=== PATIENT | female | born 1985 | race Caucasian/White ===

== ENCOUNTER 2017-12-25 12:35 | Outpatient (CLI) | payer OTHER ==
[~2017-12-25] VITALS: Ht 167.6 cm; Wt 96.2 kg
[2017-12-25] VITALS (7 sets, daily range): BP systolic 132–143; BP diastolic 77–85
[~2017-12-25 12:35] MED LIST: BREAST PUMP MC; CHILD ASPIRIN81 M1 PO; ENDOCET 5-3251 EACH PO; FOLGARD1 TABLET PO; IBUPROFEN800 MG PO; MAGNESIUM30 MG PO; MOTRIN800 MG PO; PERCOCET 5/31 TABLET PO; PRENATAL VITAM1 EAC2 PO
[2017-12-25 13:16] LABS: BASOPHIL (%) 0.2 % (0-1); EOSINOPHIL (%) 1.2 % (0-5); EOSINOPHIL COUNT 0.1 K/uL (0-0.3); HEMATOCRIT 35.5 % (36.0-46.0); HEMOGLOBIN 11.9 G/DL (11.9-15.5); IMMATURE GRANULOCYTE (%) 0.4 % (0.0-0.7); LYMPHOCYTE (%) 20.6 % (15-42); MCH 27.2 PG (29.0-34.0); MCHC 33.5 G/DL (30.0-36.0); MCV 81.1 FL (83-99); MONOCYTE (%) 7.3 % (3-12); MONOCYTE COUNT 0.7 K/uL (0-0.8); NEUTROPHIL (%) 70.3 % (45-76); NEUTROPHIL COUNT 6.7 K/uL (1.8-6.4); PLATELET COUNT 174 K/uL (156-360); RBC DIS.WIDTH-CV 13.1 % (11.8-14.6); RBC DIS.WIDTH-SD 38.1 % (39-53); RED BLOOD COUNT 4.38 M/uL (3.80-5.20); WHITE BLOOD COUNT 9.5 K/uL (4.1-10.2)
[2017-12-25 13:24] LABS: ALBUMIN 3.3 g/dL (3.2-4.8); CHLORIDE 109 mEq/L (99-109); POTASSIUM 4.2 mEq/L (3.7-5.4); SODIUM 138 mEq/L (136-147)
[2017-12-25 13:26] LABS: GLUCOSE 77 mg/dL (70-99)
[2017-12-25 13:27] LABS: TOTAL PROTEIN 5.9 g/dL (6.4-8.3)
[2017-12-25 13:28] LABS: TOTAL BILIRUBIN 0.5 mg/dL (0.0-1.0)
[2017-12-25 13:30] LABS: ALKALINE PHOSPHATASE 121 IU/L (3-129); CREATININE 0.7 mg/dL (0.6-1.3); GFR ESTIMATE (CALCULATED) > 59 mL/min/
[2017-12-25 13:31] LABS: UREA NITROGEN (BUN) 12 mg/dL (9-23)
[2017-12-25 13:32] LABS: AST (GOT) 17 IU/L (2-34)
[2017-12-25 13:33] LABS: ALT (GPT) 17 IU/L (3-49)
[2017-12-25 13:48] LABS: UR CREATININE CONCENTRATION 163.4 MG/DL
[2017-12-26] MEDS ORDERED: IBUPROFEN800 MG PO (17:35)
[2017-12-26] MEDS ORDERED: ENDOCET 5-3251 EACH PO (17:35)
== END 2017-12-25 15:40 | disposition home or self-care (01) ==
LOC: LDRP-OP 12:35 → 2WEST 12:36
PROVIDERS: Obstetrics & Gynecology
DX: O26.893 Other specified pregnancy related conditions, third trimester (principal); R03.0 Elevated blood-pressure reading, without diagnosis of hypertension; O28.8 Other abnormal findings on antenatal screening of mother; Z3A.37 37 weeks gestation of pregnancy
CPT/HCPCS: 59025; 80053; 82570; 84156; 85025; G0378

== ENCOUNTER 2017-12-26 15:08 | Inpatient (IN) | payer OTHER ==
[~2017-12-26] VITALS: Ht 165.1 cm; Wt 95.0 kg
[2017-12-26 16:02] LABS: BASOPHIL (%) 0.2 % (0-1); EOSINOPHIL (%) 0.8 % (0-5); EOSINOPHIL COUNT 0.1 K/uL (0-0.3); HEMATOCRIT 36.6 % (36.0-46.0); HEMOGLOBIN 12.2 G/DL (11.9-15.5); IMMATURE GRANULOCYTE (%) 0.4 % (0.0-0.7); LYMPHOCYTE (%) 20.6 % (15-42); LYMPHOCYTE COUNT 1.9 K/uL (1.0-2.8); MCH 26.6 PG (29.0-34.0); MCHC 33.3 G/DL (30.0-36.0); MCV 79.9 FL (83-99); MONOCYTE (%) 6.3 % (3-12); MONOCYTE COUNT 0.6 K/uL (0-0.8); NEUTROPHIL (%) 71.7 % (45-76); NEUTROPHIL COUNT 6.5 K/uL (1.8-6.4); PLATELET COUNT 178 K/uL (156-360); RBC DIS.WIDTH-CV 13.2 % (11.8-14.6); RBC DIS.WIDTH-SD 37.5 % (39-53); RED BLOOD COUNT 4.58 M/uL (3.80-5.20); WHITE BLOOD COUNT 9.1 K/uL (4.1-10.2)
[2017-12-26 16:13] VITALS: BP 138/85
[2017-12-26 16:17] LABS: ALBUMIN 3.4 g/dL (3.2-4.8); CHLORIDE 108 mEq/L (99-109)
[2017-12-26 16:18] LABS: POTASSIUM 4.2 mEq/L (3.7-5.4); SODIUM 136 mEq/L (136-147)
[2017-12-26 16:19] LABS: GLUCOSE 76 mg/dL (70-99); TOTAL PROTEIN 6.6 g/dL (6.4-8.3)
[2017-12-26 16:23] LABS: ALKALINE PHOSPHATASE 124 IU/L (3-129); CREATININE 0.7 mg/dL (0.6-1.3); GFR ESTIMATE (CALCULATED) > 59 mL/min/
[2017-12-26 16:24] LABS: AST (GOT) 17 IU/L (2-34); UREA NITROGEN (BUN) 11 mg/dL (9-23)
[2017-12-26 16:26] LABS: ALT (GPT) 18 IU/L (3-49)
[2017-12-26 16:28] LABS: TOTAL BILIRUBIN 0.7 mg/dL (0.0-1.0)
[2017-12-26] MEDS ORDERED: ENDOCET 5-3251 EACH PO (17:35)
[2017-12-26] MEDS ORDERED: IBUPROFEN800 MG PO (17:35)
[2017-12-26 21:05] VITALS: BP 134/73
[2017-12-26 22:55] VITALS: BP 139/75
[2017-12-27 00:05] VITALS: BP 146/77
[2017-12-27 01:33] LABS: AMPHETAMINE NEGATIVE (500 ng/mL); BARBITURATES NEGATIVE (200 ng/mL); BENZODIAZEPINES NEGATIVE (150 ng/mL); BUPRENORPHINE NEGATIVE (10 ng/mL); COCAINE NEGATIVE (150 ng/mL); METHADONE NEGATIVE (200 ng/mL); METHAMPHETAMINE NEGATIVE (500 ng/mL); OPIATES (MORPHINE) NEGATIVE (100 ng/mL); OXYCODONE NEGATIVE (100 ng/mL); PHENCYCLIDINE NEGATIVE (25 ng/mL); PROPOXYPHENE NEGATIVE (300 ng/mL); THC CANNABINOIDS NEGATIVE (50 ng/mL); TRICYCLIC ANTIDEPRESSANTS NEGATIVE (300 ng/mL)
[2017-12-27 05:00] VITALS: BP 124/71
[2017-12-27 07:00] LABS: ALBUMIN 2.3 G/DL (3.2-4.8); ALKALINE PHOSPHATASE 70 IU/L (3-129); ALT (GPT) 12 IU/L (3-49); AST (GOT) 16 IU/L (2-34); CHLORIDE 105 MEQ/L (99-109); CREATININE 0.8 MG/DL (0.6-1.3); GFR ESTIMATE (CALCULATED) > 59 mL/min/; GLUCOSE 75 mg/dL (70-99); POTASSIUM 4.4 MEQ/L (3.7-5.4); SODIUM 134 MEQ/L (136-147); TOTAL BILIRUBIN 0.5 MG/DL (0.0-1.0); TOTAL PROTEIN 4.2 G/DL (6.4-8.3); UREA NITROGEN (BUN) 13 mg/dL (9-23)
[2017-12-27 07:09] LABS: BASOPHIL (%) 0.3 % (0-1); EOSINOPHIL (%) 0.8 % (0-5); EOSINOPHIL COUNT 0.1 K/uL (0-0.3); HEMATOCRIT 29.4 % (36.0-46.0); IMMATURE GRANULOCYTE (%) 0.5 % (0.0-0.7); LYMPHOCYTE (%) 20.7 % (15-42); MCH 26.7 PG (29.0-34.0); MCHC 32.7 G/DL (30.0-36.0); MCV 81.9 FL (83-99); MONOCYTE (%) 6.6 % (3-12); MONOCYTE COUNT 0.7 K/uL (0-0.8); NEUTROPHIL (%) 71.1 % (45-76); PLATELET COUNT 137 K/uL (156-360); RBC DIS.WIDTH-CV 13.1 % (11.8-14.6); RBC DIS.WIDTH-SD 39.3 % (39-53); WHITE BLOOD COUNT 9.8 K/uL (4.1-10.2)
[2017-12-27 07:11] LABS: HEMOGLOBIN 9.6 G/DL (11.9-15.5); RED BLOOD COUNT 3.59 M/uL (3.80-5.20)
[2017-12-27 15:54] VITALS: BP 123/78
[2017-12-27 21:56] VITALS: BP 131/63
[2017-12-28 07:17] VITALS: BP 134/70
[2017-12-28] MEDS ORDERED: IBUPROFEN800 MG PO (09:38)
[2017-12-28] MEDS ORDERED: ENDOCET 5-3251 EACH PO (09:38)
[2017-12-28 10:26] LABS: TREPONEMA ANTIBODY NEGATIVE (NEGATIVE)
[2017-12-28 11:02] VITALS: BP 137/85
== END 2017-12-28 15:39 | disposition home or self-care (01) | DRG 765 ==
LOC: LDRP-OP 15:08 → 2WEST 15:09 → LDRP-OP 02-07 16:54
PROVIDERS: Obstetrics & Gynecology Gynecology
PROC: 0UB70ZZ Excision of Bilateral Fallopian Tubes, Open Approach (ICD-10-PCS; principal; 2017-12-26)
PROC: 10D00Z1 Extraction of Products of Conception, Low, Open Approach (ICD-10-PCS; principal; 2017-12-26)
DX: O34.211 Maternal care for low transverse scar from previous cesarean delivery (principal); D68.52 Prothrombin gene mutation; O99.12 Other diseases of the blood and blood-forming organs and certain disorders involving the immune mechanism complicating childbirth; E72.12 Methylenetetrahydrofolate reductase deficiency; O13.4 Gestational [pregnancy-induced] hypertension without significant proteinuria, complicating childbirth; O99.214 Obesity complicating childbirth; E66.9 Obesity, unspecified; Z68.33 Body mass index [BMI] 33.0-33.9, adult; Z3A.37 37 weeks gestation of pregnancy; Z37.0 Single live birth; Z30.2 Encounter for sterilization; M41.9 Scoliosis, unspecified; O75.9 Complication of labor and delivery, unspecified; O99.89 Other specified diseases and conditions complicating pregnancy, childbirth and the puerperium; Z86.011 Personal history of benign neoplasm of the brain; O99.284 Endocrine, nutritional and metabolic diseases complicating childbirth; O69.81X0 Labor and delivery complicated by cord around neck, without compression, not applicable or unspecified
CPT/HCPCS: 80053; 82570; 84156; 84550; 85025; 86780; 86850; 86900; 86901; 88302; 88307; J0330; J0690; J1170; J2274; J2550; J2765; J3010; J7120